=== PATIENT | male | born 1945 | race Caucasian/White ===

== ENCOUNTER 2016-07-19 11:28 | Emergency (ER) | payer OTHER ==
--- NOTE | ~2016-07-19 | CR72 ---
[facility]. [facility] A Service [facility] RADIOLOGY TEXT RESULTS PATIENT: ANDRES GERBER LOCATION: SED : 43 UNIT #: [id number] AGE: [address]: Sarah Sanford MD SEX: M ORDER DR: [id number] [place] [address] [id number] MR#: [id number] Acc #: [id number] NAME: ANDRES GERBER. : 1945 SEX: M STUDY DATE/TIME: 07/19/2016 12:00 UNIT: SED ROOM: STUDY DESCRIPTION: CR Chest Single View Portable Attending Physician: Sarah Sanford M.D. Ordering Physician: Sarah Sanford M.D. MEDICAL IMAGING REPORT This report is preliminary unless electronic signature is present. EXAM Portable chest INDICATION Shortness of breath today COMPARISON 05/21/2014 FINDINGS The exam is somewhat limited due to under-penetration of the lung bases. There may be increased interstitial opacities bilaterally which may represent edema or interstitial pneumonia. Correlate clinically. Heart size stable. Single-lead pacemaker IMPRESSION Exam is somewhat limited due to under-penetration. There may be increased interstitial opacities bilaterally, mainly within the mid and lower zones which could reflect interstitial edema or pneumonia. Correlate clinically. Stable cardiomegaly. Dictated by... Jairo García M.D. THIS IS AN ELECTRONICALLY VERIFIED REPORT Jairo García M.D. at 07/20/2016 12:36 PM HARVEY/linda TD: 07/19/2016 13:02 JOB #: [id number] MEDICAL IMAGING REPORT [facility] A Service [facility] RADIOLOGY TEXT RESULTS PATIENT: ANDRES GERBER LOCATION: SED : 43 UNIT #: [id number] AGE: [address]: Sarah Sanford MD SEX: M ORDER DR: Page 1 of 1
--- NOTE | ~2016-07-19 | EKG ---
PATIENT: ANDRES GERBER UNIT #: [id number] Ventricular Rate: 58 BPM Atrial Rate: 73 BPM QRS Duration: 140 ms Q-T Interval: 486 ms QTC Calculation(Bezet): 477 ms Calculated R [place]: -78 degrees Calculated T [place]: 49 degrees Diagnosis Line: Undetermined rhythm Diagnosis Line: Left bundle branch block Diagnosis Line: Abnormal ECG Diagnosis Line: When compared with ECG of 21-MAY-2014 12:44, Diagnosis Line: Current undetermined rhythm precludes rhythm Diagnosis Line: comparison, needs review Diagnosis Line: Confirmed by UGO FIELDS MD ([id number]) on Diagnosis Line: 07/21/2016 3:23:39 PM INTERPRETING MD: DIAMOND LLAMAS
[~2016-07-19 11:28] MED LIST: ACCUPRIL PO; ADVAIR 1001 DISK W/D; COUMADIN; COUMADIN PO; COUMADIN7.5 MG PO; EFFER-K 10 MEQ10 MEQ; FERROUS SULFATE; LANOXIN; LASIX; LIPITOR; METOPROLOL SUC100 MG PO; MICRO-K; PRILOSEC; PRILOSEC20 M1 PO; SIMVASTATIN40 MG PO; TIROSINT25 MCG PO; TOPROL XL
[2016-07-19 11:48] LABS: BASOPHIL# 0.1 X10e3 (0-0.3); BASOPHIL% 0.9 % (0-2.5); EOSINOPHIL# 0.8 X10e3 (0-0.7); EOSINOPHIL% 8.4 % (0.0-7.0); HEMATOCRIT 41.8 % (38.0-50.0); HEMOGLOBIN 14.3 gm/dL (13.0-16.0); LYMPHOCYTE# 1.5 X10e3 (1.0-3.5); LYMPHOCYTE% 15.3 % (17.0-45.0); MEAN CELL VOLUME 83.8 FL (83-96); MEAN CORPUSCULAR HEMOGLOBIN 28.8 PG (28-34); MEAN CORPUSCULAR HGB CONC 34.3 g/dL (30-36); MEAN PLATELET VOLUME 7.4 FL (6.5-11.5); NEUTROPHIL# 6.2 X10e3 (1.5-7.1); NEUTROPHIL% 65.4 % (40-75); PLATELET COUNT 373 X10e3 (140-420); RED BLOOD COUNT 4.99 X10e (3.90-5.60); RED CELL DISTRIBUTION WIDTH 15.2 % (11.0-15.5); WHITE BLOOD COUNT 9.6 X10e3 (4.0-10.5)
[2016-07-19] MEDS ORDERED: METOLAZONE2.5 MG PO (11:54)
[2016-07-19] MEDS ORDERED: LASIX PO (11:54)
[2016-07-19 12:02] LABS: INR 2.7; PROTHROMBIN TIME (PATIENT) 30.9 SECONDS (9.5-12.4)
[2016-07-19 12:04] LABS: ARTERIAL BLD GAS O2 SATURATION 96.7 % (90.0-100.0); ARTERIAL BLOOD GAS CARBOXY HB 2.3 %sat (0.0-9.0); ARTERIAL BLOOD GAS HCO3 34.6 mmol/L
[2016-07-19 12:06] LABS: ARTERIAL BLOOD GAS ALLEN TEST Y; ARTERIAL DRAW? YES
[2016-07-19 12:06] LABS: POC - CKMB 1.1 ng/mL (0.0-7.9); POC - TROPONIN <0.05 ng/mL (<=0.05)
[2016-07-19 12:07] LABS: DIFF IND NO
[2016-07-19 12:07] LABS: ARTERIAL BLOOD GAS ART SITE RIGHT RADIAL
[2016-07-19 12:09] LABS: PARTIAL THROMBOPLASTIN TIME 41.8 SECONDS (25.6-38.1)
[2016-07-19 12:25] LABS: ALBUMIN SERUM 3.3 g/dL (3.5-5.0); BILIRUBIN, DIRECT 0.4 mg/dL (0.0-0.2); BILIRUBIN,INDIRECT 1.2 mg/dL (0.0-0.9); BILIRUBIN,TOTAL 1.6 mg/dL (0.2-2.0); BUN/CREATININE RATIO 28.88; CALCIUM SERUM 8.8 mg/dL (8.4-10.2); CREATININE SERUM 0.9 mg/dL (0.6-1.4); GLOM FILT RATE Estimated 84.4 mL/min (>60); MAGNESIUM 1.6 mg/dL (1.6-3.0); PROTEIN TOTAL SERUM 7.5 g/dL (6.0-8.3)
[2016-07-19 12:39] LABS: POTASSIUM 2.8 mmol/L (3.5-5.1)
[2016-07-19 15:33] LABS: POC - CKMB 2.2 ng/mL (0.0-7.9); POC - TROPONIN <0.05 ng/mL (<=0.05)
== END 2016-07-19 16:40 | disposition home or self-care (01) ==
LOC: SED 11:28
PROVIDERS: Student in an Organized Health Care Education/Training Program
DX: E87.6 Hypokalemia (principal); R09.02 Hypoxemia; R06.02 Shortness of breath; I11.0 Hypertensive heart disease with heart failure; I50.9 Heart failure, unspecified; I48.91 Unspecified atrial fibrillation; J45.909 Unspecified asthma, uncomplicated; Z88.0 Allergy status to penicillin; Z79.899 Other long term (current) drug therapy
CPT/HCPCS: 36415; 36600; 71010; 80048; 80076; 82553; 82803; 83690; 83735; 83880; 84484; 85025; 85610; 85730; 93005; 94640; 96365; 96366; 96375; 99284; J0456; J1940; J2930; J3475